=== PATIENT | female | born 1975 | race Caucasian/White ===

== ENCOUNTER → 2017-11-09 07:00 | Outpatient (CLI) | payer OTHER, SELFPAY ==
--- NOTE | 2017-11-09 06:59 | HPBI_ITS ---
MAMMOGRAPHY - BILATERAL SCREENING REASON FOR EXAM: Female, 42 years old. Routine annual screening examination. PERTINENT HISTORY: Grandmother with breast cancer. TECHNIQUE: Digital bilateral breast maria g (3D mammographic acquisition) in the CC and MLO projections. 2-D mediolateral oblique (MLO) and craniocaudad (CC) views of both breasts were obtained. CAD: Full Field Digital Mammography with Computer Added Detection was performed. COMPARISON: Comparison is made with prior axial examination dated December 05, 2014. FINDINGS: Breast Composition: There are scattered areas of fibroglandular density. There are no dominant masses or suspicious calcifications. Stable bilateral benign appearing axillary lymph nodes. No other significant abnormalities are identified. There has been no significant change since the prior study. HPBI/SCREENING MAMM (CAD), BILAT IMPRESSION: Stable bilateral screening mammogram. Yearly follow-up mammogram recommended. (A) ASSESSMENT CATEGORY: BIRADS Category 2: Benign. A letter regarding these results will be sent to the patient by the facility within 30 days. Approximately 10% of breast cancers are not detected by mammography. A normal mammogram should not delay biopsy of a clinically suspicious abnormality. [id number] Electronically Signed: Paul Palmer MD at 8:25 EST Tel [phone], Service support ,
== END ==
PROVIDERS: Family Provider Family Medicine; PCP Family Medicine; Visit Provider Obstetrics & Gynecology
DX: Z12.31 Encounter for screening mammogram for malignant neoplasm of breast (principal)
CPT/HCPCS: 77063; 77067

== ENCOUNTER → 2018-11-23 09:00 | Outpatient (CLI) | payer OTHER, SELFPAY ==
[2018-11-23 08:49] VITALS: BMI 26.9
== END ==
PROVIDERS: PCP Family Medicine; Visit Provider Obstetrics & Gynecology
DX: Z12.4 Encounter for screening for malignant neoplasm of cervix (principal)

== ENCOUNTER → 2019-01-04 06:56 | Outpatient (CLI) | payer OTHER, SELFPAY ==
[2018-11-23 08:49] VITALS: BMI 26.9
--- NOTE | 2019-01-04 07:04 | BI_ITS ---
MAMMOGRAPHY - BILATERAL SCREENING REASON FOR EXAM: Female, 43 years old. Routine annual screening examination. PERTINENT HISTORY: Grandmother with breast cancer. TECHNIQUE: Digital bilateral breast meme (3D mammographic acquisition) in the CC and MLO projections. 2-D mediolateral oblique (MLO) and craniocaudad (CC) views of both breasts were obtained. CAD: Full Field Digital Mammography with Computer Added Detection was performed. COMPARISON: Comparison is made with prior study dated November 09, 2017. FINDINGS: Breast Composition: The breasts are heterogeneously dense, which may obscure small masses. There are no dominant masses or suspicious calcifications. Stable appearance of the bilateral axillary lymph nodes. No other significant abnormalities are identified. There has been no significant change since the prior study. BI/SCREEN MAMM (CAD) W/MEME BILAT IMPRESSION: Stable bilateral screening mammogram. Yearly follow-up mammogram recommended. (A) ASSESSMENT CATEGORY: BIRADS Category 2: Benign. A letter regarding these results will be sent to the patient by the facility within 30 days. Approximately 10% of breast cancers are not detected by mammography. A normal mammogram should not delay biopsy of a clinically suspicious abnormality. [id number] Electronically Signed: Paul Palmer, at 8:36 EDT , Service support ,
== END ==
PROVIDERS: Family Provider Family Medicine; PCP Family Medicine; Referring Provider Obstetrics & Gynecology; Visit Provider Obstetrics & Gynecology
DX: Z12.31 Encounter for screening mammogram for malignant neoplasm of breast (principal)
CPT/HCPCS: 77063; 77067

== ENCOUNTER 2020-06-20 12:06 | Outpatient (RCR) | payer OTHER, SELFPAY ==
[2018-11-23 08:49] VITALS: BMI 26.9
== END 2020-07-04 23:59 ==
LOC: EMPH 12:06
PROVIDERS: Visit Provider Family Medicine Geriatric Medicine
DX: Z11.59 Encounter for screening for other viral diseases (principal)
CPT/HCPCS: 87635; U0003

== ENCOUNTER 2020-08-02 10:33 | Outpatient (RCR) | payer OTHER, SELFPAY ==
[2018-11-23 08:49] VITALS: BMI 26.9
== END 2020-08-04 23:59 ==
LOC: EMPH 10:33
PROVIDERS: Visit Provider Family Medicine Geriatric Medicine
DX: Z03.818 Encounter for observation for suspected exposure to other biological agents ruled out (principal)
CPT/HCPCS: 87426

== ENCOUNTER 2020-08-29 10:06 | Outpatient (RCR) | payer OTHER, SELFPAY ==
[2018-11-23 08:49] VITALS: BMI 26.9
[2020-08-16 13:44] LABS: Probe Check PASS; Specimen Processing Control PASS
== END 2020-09-03 23:59 ==
LOC: EMPH 10:06
PROVIDERS: Visit Provider Family Medicine Geriatric Medicine
DX: Z03.818 Encounter for observation for suspected exposure to other biological agents ruled out (principal)
CPT/HCPCS: 87426; 87635; U0002

== ENCOUNTER 2020-10-03 14:12 | Outpatient (RCR) | payer OTHER, SELFPAY ==
[2018-11-23 08:49] VITALS: BMI 26.9
== END 2020-10-04 23:59 ==
LOC: EMPH 14:12
PROVIDERS: Referring Provider Family Medicine Geriatric Medicine; Visit Provider Family Medicine Geriatric Medicine
DX: Z03.818 Encounter for observation for suspected exposure to other biological agents ruled out (principal)
CPT/HCPCS: 87426

== ENCOUNTER → 2020-10-30 07:26 | Outpatient (CLI) | payer OTHER, SELFPAY ==
[2018-11-23 08:49] VITALS: BMI 26.9
--- NOTE | 2020-10-30 07:29 | BI_ITS ---
MAMMOGRAPHY - BILATERAL SCREENING REASON FOR EXAM: Female, 45 years old. Routine annual screening examination. PERTINENT HISTORY: Grandmother with breast cancer. Aunt with breast cancer. TECHNIQUE: Digital bilateral breast meme (3D mammographic acquisition) in the CC and MLO projections. 2-D mediolateral oblique (MLO) and craniocaudad (CC) views of both breasts were obtained. CAD: Full Field Digital Mammography with Computer Added Detection was performed. COMPARISON: Comparison is made with prior examination dated 01/04/2019 and 11/09/2017. FINDINGS: Breast Composition: The breasts are heterogeneously dense, which may obscure small masses. There are no dominant masses or suspicious calcifications. Stable appearance of the small bilateral axillary lymph nodes. No other significant abnormalities are identified. There has been no significant change since the prior study. BI/SCRN MAMM (CAD)W/MEME BILAT IMPRESSION: Stable bilateral screening mammogram. Yearly follow-up mammogram recommended. (A) ASSESSMENT CATEGORY: BIRADS Category 2: Benign. A letter regarding these results will be sent to the patient by the facility within 30 days. Approximately 10% of breast cancers are not detected by mammography. A normal mammogram should not delay biopsy of a clinically suspicious abnormality. [id number] Electronically Signed: Paul Palmer MD at 8:43 EST , Service support ,
== END ==
DX: Z12.31 Encounter for screening mammogram for malignant neoplasm of breast (principal); Z80.3 Family history of malignant neoplasm of breast
CPT/HCPCS: 77063; 77067

== ENCOUNTER 2020-11-02 14:13 | Outpatient (RCR) | payer OTHER, SELFPAY ==
[2018-11-23 08:49] VITALS: BMI 26.9
== END 2020-11-04 23:59 ==
LOC: EMPH 14:13
PROVIDERS: Referring Provider Family Medicine Geriatric Medicine; Visit Provider Family Medicine Geriatric Medicine
DX: Z03.818 Encounter for observation for suspected exposure to other biological agents ruled out (principal)
CPT/HCPCS: 87426

== ENCOUNTER 2020-11-30 09:35 | Outpatient (RCR) | payer OTHER, SELFPAY ==
[2020-10-30 08:31] VITALS: BMI 24.4
== END 2020-12-02 23:59 ==
LOC: EMPH 09:35
PROVIDERS: Referring Provider Family Medicine Geriatric Medicine; Visit Provider Family Medicine Geriatric Medicine
DX: Z03.818 Encounter for observation for suspected exposure to other biological agents ruled out (principal)
CPT/HCPCS: 87426

== ENCOUNTER 2020-12-26 12:02 | Outpatient (RCR) | payer OTHER, SELFPAY ==
[2020-10-30 08:31] VITALS: BMI 24.4
== END 2021-01-02 23:59 ==
LOC: EMPH 12:02
PROVIDERS: Referring Provider Family Medicine Geriatric Medicine; Visit Provider Family Medicine Geriatric Medicine
DX: Z03.818 Encounter for observation for suspected exposure to other biological agents ruled out (principal)
CPT/HCPCS: 87426

== ENCOUNTER 2021-02-01 09:58 | Outpatient (RCR) | payer OTHER, SELFPAY ==
[2020-10-30 08:31] VITALS: BMI 24.4
== END 2021-02-01 23:59 ==
LOC: EMPH 09:58
PROVIDERS: Referring Provider Family Medicine Geriatric Medicine; Visit Provider Family Medicine Geriatric Medicine
DX: Z03.818 Encounter for observation for suspected exposure to other biological agents ruled out (principal)
CPT/HCPCS: 87426

== ENCOUNTER 2021-03-01 09:09 | Outpatient (RCR) | payer OTHER, SELFPAY ==
[2020-10-30 08:31] VITALS: BMI 24.4
== END 2021-03-04 23:59 ==
LOC: EMPH 09:09
PROVIDERS: Referring Provider Family Medicine Geriatric Medicine; Visit Provider Family Medicine Geriatric Medicine
DX: Z03.818 Encounter for observation for suspected exposure to other biological agents ruled out (principal)
CPT/HCPCS: 87426

== ENCOUNTER 2021-04-02 11:16 | Outpatient (RCR) | payer OTHER, SELFPAY ==
[2020-10-30 08:31] VITALS: BMI 24.4
== END 2021-04-03 23:59 ==
LOC: EMPH 11:16
PROVIDERS: Referring Provider Family Medicine Geriatric Medicine; Visit Provider Family Medicine Geriatric Medicine
DX: Z03.818 Encounter for observation for suspected exposure to other biological agents ruled out (principal)
CPT/HCPCS: 87426

== ENCOUNTER 2021-05-03 12:13 | Outpatient (RCR) | payer OTHER, SELFPAY ==
[2020-10-30 08:31] VITALS: BMI 24.4
== END 2021-05-04 23:59 ==
LOC: EMPH 12:13
PROVIDERS: Referring Provider Family Medicine Geriatric Medicine; Visit Provider Family Medicine Geriatric Medicine
DX: Z03.818 Encounter for observation for suspected exposure to other biological agents ruled out (principal)
CPT/HCPCS: 87426

== ENCOUNTER 2021-06-04 12:20 | Outpatient (RCR) | payer OTHER, SELFPAY ==
[2020-10-30 08:31] VITALS: BMI 24.4
== END 2021-06-04 23:59 ==
LOC: EMPH 12:20
PROVIDERS: Referring Provider Family Medicine Geriatric Medicine; Visit Provider Family Medicine Geriatric Medicine
DX: Z03.818 Encounter for observation for suspected exposure to other biological agents ruled out (principal)
CPT/HCPCS: 87426

== ENCOUNTER 2021-07-04 13:13 | Outpatient (RCR) | payer OTHER, SELFPAY ==
[2021-06-05 00:28] VITALS: BMI 24.4
== END 2021-07-04 23:59 ==
LOC: EMPH 13:13
PROVIDERS: Referring Provider Family Medicine Geriatric Medicine; Visit Provider Family Medicine Geriatric Medicine
DX: Z03.818 Encounter for observation for suspected exposure to other biological agents ruled out (principal)
CPT/HCPCS: 87426; 87635; U0003

== ENCOUNTER 2021-07-18 16:25 | Outpatient (RCR) | payer OTHER, SELFPAY ==
[2021-07-05 00:22] VITALS: BMI 24.4
== END 2021-08-04 23:59 ==
LOC: EMPH 16:25
PROVIDERS: Referring Provider Family Medicine Geriatric Medicine; Visit Provider Family Medicine Geriatric Medicine
DX: Z03.818 Encounter for observation for suspected exposure to other biological agents ruled out (principal)
CPT/HCPCS: 87426

== ENCOUNTER 2021-08-12 11:00 | Outpatient (RCR) | payer OTHER, SELFPAY ==
[2021-08-05 00:18] VITALS: BMI 24.4
== END 2021-09-03 23:59 ==
LOC: EMPH 11:00
PROVIDERS: Referring Provider Family Medicine Geriatric Medicine; Visit Provider Family Medicine Geriatric Medicine
DX: Z03.818 Encounter for observation for suspected exposure to other biological agents ruled out (principal)
CPT/HCPCS: 87426

== ENCOUNTER 2021-09-10 13:52 | Outpatient (RCR) | payer OTHER, SELFPAY ==
[2021-09-04 00:23] VITALS: BMI 24.4
== END 2021-10-04 23:59 ==
LOC: EMPH 13:52
PROVIDERS: Referring Provider Family Medicine Geriatric Medicine; Visit Provider Family Medicine Geriatric Medicine
DX: Z03.818 Encounter for observation for suspected exposure to other biological agents ruled out (principal)
CPT/HCPCS: 87635; U0003

== ENCOUNTER 2021-10-10 14:24 | Outpatient (RCR) | payer OTHER, SELFPAY ==
[2021-10-05 00:23] VITALS: BMI 24.4
== END 2021-11-04 23:59 ==
LOC: EMPH 14:24
PROVIDERS: Referring Provider Family Medicine Geriatric Medicine; Visit Provider Family Medicine Geriatric Medicine
DX: U07.1 COVID-19 (principal); Z03.818 Encounter for observation for suspected exposure to other biological agents ruled out
CPT/HCPCS: 87426

== ENCOUNTER → 2023-04-30 | Outpatient (CLI) | payer OTHER, SELFPAY ==
--- NOTE | 2023-04-30 08:37 | BI_ITS ---
MAMMOGRAPHY - BILATERAL SCREENING REASON FOR EXAM: Female, 47 years old. Routine annual screening examination. PERTINENT HISTORY: Grandmother with breast cancer. Aunt with breast cancer. TECHNIQUE: Digital bilateral breast meme (3D mammographic acquisition) in the CC and MLO projections. 2-D mediolateral oblique (MLO) and craniocaudad (CC) views of both breasts were obtained. CAD: Full Field Digital Mammography with Computer Added Detection was performed. COMPARISON: Comparison is made with prior study dated April 29, 2021 and January 04, 2019. FINDINGS: Breast Composition: The breasts are heterogeneously dense, which may obscure small masses. There are no dominant masses or suspicious calcifications. Stable small benign-appearing bilateral axillary lymph nodes. No other significant abnormalities are identified. There has been no significant change since the prior study. BI/SCRN MAMM (CAD)W/MEME BILAT IMPRESSION: Stable bilateral screening mammogram. Yearly follow-up mammogram recommended. (A) ASSESSMENT CATEGORY: BIRADS Category 2: Benign. A letter regarding these results will be sent to the patient by the facility within 30 days. Approximately 10% of breast cancers are not detected by mammography. A normal mammogram should not delay biopsy of a clinically suspicious abnormality. [id number] Electronically Signed: Paul Palmer MD at 9:50 EDT ,
== END | disposition home or self-care (01) ==
LOC: OPBI 08:34
DX: Z12.31 Encounter for screening mammogram for malignant neoplasm of breast (principal); Z80.3 Family history of malignant neoplasm of breast
CPT/HCPCS: 77063; 77067

== ENCOUNTER → 2023-07-15 | Outpatient (CLI) | payer OTHER, SELFPAY ==
[2023-07-21 17:07] LABS: HPV APTIMA, High Risk Negative (Negative)
== END | disposition home or self-care (01) ==
LOC: LABSPEC 15:43
PROVIDERS: Referring Provider Obstetrics & Gynecology; Visit Provider Obstetrics & Gynecology
DX: Z12.4 Encounter for screening for malignant neoplasm of cervix (principal)
CPT/HCPCS: 87624; 88175; G0145

== ENCOUNTER → 2023-09-07 | Outpatient (CLI) | payer OTHER, SELFPAY ==
--- NOTE | 2023-09-07 16:26 | US_ITS ---
INDICATION: endocervical polyp EXAMINATION: Ultrasound US Transvaginal Non-OB TECHNIQUE: Transvaginal pelvic ultrasound was performed. Grayscale, spectral waveform, and color flow Doppler evaluation of the adnexa. COMPARISON: None LMP: 08/20/2023. FINDINGS: UTERUS: 9.9 cm length. Normal configuration. ENDOMETRIUM: Thickened. 2.1 cm. Multiple nabothian cysts in the cervix. No definite polyp or mass identified in the endometrial canal. OVARIES: Right ovary: 3.1 x 1.7 x 1.9 cm. Left ovary: 4.3 x 2.2 x 2.9 cm. Cystic structure with irregular margins, measures 2.1 x 1.5 x 2.0 cm. The ovaries otherwise appear unremarkable. Vascular flow demonstrated. No findings to suggest ovarian torsion. FREE FLUID: Small amount of free fluid in the cul-de-sac and adjacent to the right ovary.. US/Transvaginal Non- IMPRESSION: Thickened endometrium. No definite endometrial polyp identified. Nabothian cysts in the cervix. Left ovarian small 2 cm complex cyst or follicle. Electronically Signed: Amee Butler MD at 0:05 EST ,
== END | disposition home or self-care (01) ==
PROVIDERS: Referring Provider Obstetrics & Gynecology; Visit Provider Obstetrics & Gynecology
DX: N84.1 Polyp of cervix uteri (principal)
CPT/HCPCS: 76830

== ENCOUNTER → 2024-06-21 | Outpatient (CLI) | payer OTHER, SELFPAY ==
--- NOTE | 2024-06-21 08:40 | BI_ITS ---
MAMMOGRAPHY - BILATERAL SCREENING REASON FOR EXAM: Female, 49 years old. Routine annual screening examination. PERTINENT HISTORY: Grandmother with breast cancer. Aunt with breast cancer. TECHNIQUE: Digital bilateral breast meme (3D mammographic acquisition) in the CC and MLO projections. 2-D mediolateral oblique (MLO) and craniocaudad (CC) views of both breasts were obtained. CAD: Full Field Digital Mammography with Computer Added Detection was performed. COMPARISON: Comparison is made with prior study April 30, 2023 and October 30, 2020. FINDINGS: Breast Composition: The breasts are heterogeneously dense, which may obscure small masses. There are no dominant masses or suspicious calcifications. Stable small benign-appearing bilateral axillary lymph nodes. No other significant abnormalities are identified. There has been no significant change since the prior study. BI/SCRN MAMM (CAD)W/MEME BILAT IMPRESSION: Stable bilateral screening mammogram. Yearly follow-up mammogram recommended. (A) ASSESSMENT CATEGORY: BIRADS Category 2: Benign. A letter regarding these results will be sent to the patient by the facility within 30 days. Approximately 10% of breast cancers are not detected by mammography. A normal mammogram should not delay biopsy of a clinically suspicious abnormality. [id number] Electronically Signed: Paul Palmer MD at 9:46 EDT ,
== END | disposition home or self-care (01) ==
LOC: OPBI 08:37
DX: Z12.31 Encounter for screening mammogram for malignant neoplasm of breast (principal); Z80.3 Family history of malignant neoplasm of breast
CPT/HCPCS: 77063; 77067

== ENCOUNTER → 2025-08-14 | Outpatient (CLI) | payer OTHER, SELFPAY ==
[2025-08-14 13:10] LABS: Vitamin B12 1525 pg/mL (180-914); Vitamin D,25 Hydroxy 38.5 ng/mL (30-100)
[2025-08-22 12:09] LABS: HPV APTIMA, High Risk Negative (Negative)
== END | disposition home or self-care (01) ==
LOC: BWCLAB 09:49
PROVIDERS: Visit Provider Obstetrics & Gynecology
DX: Z12.4 Encounter for screening for malignant neoplasm of cervix (principal); R53.83 Other fatigue
CPT/HCPCS: 36415; 82306; 82607; 87624; 88175; G0145

== ENCOUNTER → 2025-09-12 | Outpatient (CLI) | payer OTHER, SELFPAY ==
--- NOTE | 2025-09-12 08:45 | BI_ITS ---
EXAM: SCRN MAMM (CAD)W/MEME BILAT DATE: 09/12/2025 CLINICAL HISTORY: F, Age 50 y/o , SCREENING FOR BREAST CANCER Grandmother with breast cancer. Aunt with breast cancer. TECHNIQUE: Procedure Code: [id number] Modality: MG Procedure: SCRN MAMM (CAD)W/MEME BILAT COMPARISON: Prior exam(s) dated June 21, 2024.. FINDINGS: TISSUE DENSITY: The breasts are heterogeneously dense, which may obscure small masses. Bilateral Breast Mammographic Findings: No significant masses, calcifications or other abnormalities are identified. Stable small benign-appearing bilateral axillary lymph nodes. No suspicious masses, areas of developing architectural distortion, or suspicious calcifications. There has been no significant interval change. BI/SCRN MAMM (CAD)W/MEME BILAT IMPRESSION: Stable bilateral screening mammogram. OVERALL FINAL ASSESSMENT BI-RADS 2: BENIGN RECOMMENDATION: Routine annual follow-up in 1 Year Additional Recommendation none A letter with findings and recommendations will be mailed to the patient. Reading Location: [place] [id number]
--- OUTSIDE RECORDS SUMMARY | 2025-09-12 09:29 | XMS RPT_ITS | CCD ---
Author Organization [facility] Care Team Providers Care Administrative Staff Supervisor Name Role Phone Unavailable Primary Care Provider Radha Andrews MD, Alexsander Marrero Unavailable Lizette Hernandez Unavailable [phone] Kary Maciel Attending Provider [phone] Dr. Kary Maciel Attending Provider [phone] RJ CRISTINA Primary Care Provider Assessment, Health Risk Attending Provider Unava ilable Assessment, Health Risk Referring Provider Unava ilable Cipriano KABA Pancho Chi Attending Provider Unavailable Cipriano KABA, Pancho Chi Referring Provider Unavailable Cipriano OLS, Pancho Chi Attending Unavailable Cipriano OLS, Pancho Chi Referring Unavailable TRUMP, DA Primary Care Unavailable Cipriano, Pancho Chi Attending Unavailable TRUMP, DA Primary Care Unavailable Cipriano, Pancho Chi Referring Unavailable TRUMP, DA Primary Care Unavailable Cipriano, Pancho Chi Attending Unavailable Cipriano, Pancho Chi Referring Unavailable TRUMP, DA Primary Care Unavailable Assessment, Health Risk Attending Unavaila ble Assessment, Health Risk Referring Unavaila ble TRUMP, DA Primary Care Unavailable Cipriano DAYNA, Pancho Chi Attending Unavailable Cipriano OLS, Pancho Chi Referring Unavailable TRUMP, DA Primary Care Unavailable Kary Maciel Attending Unavailwillow e TRUMP, DA Primary Care Unavailable TRUMP, DA Referring Unavailable Kary Maciel Attending Radha lilly Medications Current Medications Medication Drug Class(es) Dates Sig (Normalized) Sig (Original) calcium carbonate 1250 mg oral tablet (4 sources) Start: 07-15-2023 take 1 tablet by mouth once daily Calcium Carbonate 500 mg calcium (1,250 mg) tablet Active 500 mg PO DAILY July 15, 2023 12:00am meclizine hydrochloride 25 mg oral tablet (2 sources) Antiemetic Start: 06-25-2023 Meclizine 25 mg oral tablet Multivitamin preparation (12 sources) Start: 10-30-2020 take 1 tablet by mouth once daily Multivitamin Active 1 TABLET PO DAILY October 30, 2020 9:34am Start: 10-30-2020 End: 07-15-2023 take 1 tablet by mouth once daily Multivitamin Discontinued 1 TABLET PO DAILY October 30, 2020 12:00am July 15, 2023 1:13pm Start: 10-30-2020 End: 07-15-2023 take 1 tablet by mouth once daily Multivitamin Discontinued 1 TABLET PO DAILY October 30, 2020 1:00am July 15, 2023 2:13pm Start: 10-30-2020 take 1 tablet by angella th once daily Multivitamin Active 1 TABLET PO DAILY October 30, 2020 12:00am Start: 10-30-2020 take 1 tablet by angella th once daily Multivitamin Active 1 TABLET PO DAILY October 30, 2020 1:00am ondansetron 4 mg disintegrating oral tablet (2 sources) Serotonin-3 Receptor Antagonist Start: 06-25-2023 Ondansetron 4 mg ora l tablet, disintegrating Completed/Discontinued Medications Medication Drug Class(es) Dates Sig (Normalized) Sig (Original) cholecalciferol 0.05 mg oral capsule (13 sources) Vitamin D Start: 10-30-2020 End: 07-15-2023 take 1 capsule by mouth once daily Cholecalciferol (Vitamin D3) 50 mcg (2,000 unit) capsule Discontinued 50 ug PO DAILY October 30, 2020 1:00am July 15, 2023 2:13pm loratadine 10 mg oral tablet (13 sources) Start: 10-30-2020 End: 07-15-2023 take 1 tablet by mouth once daily Loratadine (Claritin) 10 mg tablet Discontinued 10 mg PO DAILY October 30, 2020 1:00am July 15, 2023 2:13pm multivitamin (DAILY MULTIPLE) tablet (1 source) Start: 11-02-2014 take 1 tablet by mouth once daily multivitamin (DAILY MULTIPLE) tablet Take 1 tablet by mouth once daily. 0 11/02/2014 Active Comment on above: Take 1 tablet by angella th once daily. Multivitamin tablet (1 source) Start: 10-30-2020 End: 07-15-2023 Multivitamin tablet Discontinued 1 {tbl} PO DAILY October 30, 2020 1:00am July 15, 2023 2:13pm NEGATED: Highlighted row has not occurred! (2 sources) Start: 07-06-2023 End: 07-06-2023 Problems Active Problems Problem Classification Problem Date Documented Da te Episodic/Chronic Conditions associated with dizziness or vertigo (4 sources) Benign paroxysmal vertigo, unspecified ear; Translations: [Benign paroxysmal vertigo, unspecified ear] Onset: 06-25-2023 Episodic Immunizations and screening for infectious disease (2 sources) Encounter for observation for suspected exposure to other biological agents ruled out; Translations: [Encounter for observation for suspected exposure to other biological agents ruled out] Onset: 06-05-2025 Episodic Malaise and fatigue (1 source) Other fatigue; Translations: [Other fatigue] Onset: 08-14-2025 Episodic Other female genital disorders (4 sources) Endocervical polyp; Translations: [Polyp of cervix uteri] 07-15-2023 Episodic Other female genital disorders (3 sources) Polyp of cervix uteri; Translations: [Mucous polyp of cervix] 07-15-2023 Episodic Other screening for suspected conditions (not mental disorders or infectious disease) (1 source) Encounter for other screening for malignant neoplasm of breast; Translations: [Encounter for other screening for malignant neoplasm of breast] Onset: 08-14-2025 Episodic Past or Other Problems Problem Classification Problem Date Documented Da te Episodic/Chronic Unclassified (9 sources) history of child 05-05-2022 Results Test Name Value Interpretation Reference Range Facility [facility] Office Visit Reporton 08-14-2025 [facility] Office Visit Report [facility] [address], [address] [place] [address] OFFICE VISIT Date of Service: 08/14/25 MR#: [id number] Acct: [id number] Name: JAMAL ZARATE Rep #: [id number] : 1975 Provider: Dr. 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 Is patient in pain?: No Allergies No Known Allergies Allergy (Verified 08/14/25 08:50) Medications ???Medication ???Instructions ???Recorded ???Confirmed ???Type multivitamin 1 tab PO QAM 08/14/25 08/14/25 His tory Is last menstrual period known: Yes Last Menstrual Period: 07/31/25 Post menopausal: No Patient : No : No [facility] Medical History history of child Social History Smoking Status: Never smoker alcohol intake: never substance use type: does not use caffeine: Yes what type of physical activity do you participate in: none seatbelt use: always do you feel safe at home: Yes 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 Date Name GA/Weeks Outcome Route Bth Weight Gen Labor Lgth Anesthesia Del Locatn Provider FOB Unknown 2003 Bogdan Unknown 2004 [facility] Encounter for routine gynecological examination Details: The patient is a 50-year-old female with a history of perimenopause presenting for an annual checkup. Menopausal Symptoms - Reports feeling tired all the time, even after 8 hours of sleep, and experiencing brain fog. - Denies hot flashes, night sweats, or sleep disturbances. - Expresses curiosity about hormone replacement therapy (HRT) and wonders if she should have her hormone levels checked. - In her 30s, she experienced symptoms of perimenopause, including irregular periods and recurrent yeast infections. She was treated with progesterone cream and boric acid, which resolved her symptoms and normalized her cycles. Menstrual History - Reports regular menstrual cycles. Bone Health - Asks about vitamin D supplementation for osteoporosis prevention. Family History - Grandmother had breast cancer. Current Medications and Supplements - None mentioned. Past Medical History - Perimenopause (diagnosed in her 30s) Past Surgical History - None mentioned. Social History - . - Has children. - Works at a hospital. - Reports a healthy lifestyle, including weight loss over the past 5-6 years by watching her diet and avoiding junk food. Last PAP: 07/15/23- [facility]us History of abnormal PAP: yes Last mammogram: 06/21/2024 History of abnormal mammogram: no Colon cancer screening: Other preventative health care screenings: followed by pcp Female Reproductive History Last Menstrual Period: 07/31/25 Cycle Length: 21-35 Bleeding Duration: 5 Questions: metrorrhagia: No, sexually active: Yes, dyspareunia: No and PCB: No Menopausal Symptoms: No hot flashes, No night sweats, No weight change, No mood changes, No difficulty concentrating, No sleep problems and No change in libido ROS Const Constitutional: Reports as per HPI; Denies fatigue, increased appetite, poor appetite, night sweats, weight gain or weight loss Cardio Card: Denies chest pain Resp Resp: Denies cough or dyspnea GI GI: Reports as per HPI; Denies abdominal pain, bloating, constipation, nausea or vomiting : Reports as per HPI and other; Denies difficulty voiding, dysuria, hematuria, hot flashes, nipple discharge, pelvic pain, prolapse symptoms, urinary frequency, urinary incontinence, urinary urgency, vaginal discharge, vaginal dryness, vaginal odor or vaginal pruritus Skin Skin/Breast: Denies changing lesions, breast mass, breast pain, breast skin changes or nipple discharge Psych Psych: Denies anxiety, change in libido, depression or difficulty concentrating Exam Const General: cooperative, healthy appearing, comfortable, no acute distress, well developed and well groomed [facility] Head: normal to inspection and normocephalic Ears: hearing grossly normal bilaterally and external ears normal Nose: external nose normal Face and sinus: normal facial exam Neck Neck: normal visual inspection, full ROM and no lymphadenopathy Thyroid: thyroid normal Chest Chest palpation inspection: normal ins (more content not included)... Normal [facility] Vitamin B12on 08-14-2025 Cobalamin (Vitamin B12) [Mass/Vol] 1525 pg/mL High 180-914 [facility] Comment on above: Performed By: #### L 503.0106, L506.1001 #### [facility] [address] [place], [address] Vitamin D,25 Hydroxyon 08-14 Vitamin D 25-OH 38.5 ng/mL Normal 30-100 [facility] Comment on above: Result Comment: Faby min D Status Deficiency: <20 ng/mL (50nmol/L) Insufficiency: 20-30 ng/mL (50-75 nmol/L) Sufficiency: 30-100 ng/mL (75-250 nmol/L) Toxicity: >100 ng/mL (>250 nmol/L) Performed By: #### L 503.0106, L506.1001 #### [facility] [address] [facility] [place], [address] COVID 19 AG RAPID (DOUGLAS Chatman)on 05-25-2025 SARS-CoV-2 (COVID-19) RNA RAMÓN+probe Ql (Unsp spec) *Negative results from patients with symptom onset beyond five days should be treated as presumptive and confirmed by a molecular assay if clinically necessary. Negative results should not be used as the sole basis for treatment or for patient management. SARS-CoV-2 Ag Resp Ql IA.rapid *Positive results do not differentiate between SARS-CoV and SARS-CoV-2. If differentiation of the specific SARS virus is desired an additional sample and an additional order is required. SARS-CoV-2 Ag Resp Ql IA.rapid * This test has not been FDA cleared or approved; the test has been authorized by FDA under an Emergency Use Authorization (EAU) for use by laboratories certified under CLIA that meet the requirements to perform moderate, high, or waived complexity tests. SARS-CoV-2 Ag Resp Ql IA.rapid Normal Reference Range: Negative SARS-CoV-2 (COVID 19) Negative RAPID METHOD [employer] COVID19 Ag Card Normal [facility] Comment on above: Performed By: #### M 100.505 #### [facility] [address] [facility] [place], [address] COVID-19 virus antigen assay Ordered By: Pancho Cota on 05-25-2025 SARS-CoV-2 (COVID-19) Ag IA.rapid Ql (Resp) [facility] Absolute lymphocyte countOrd ered By: HEALTH ASSESSMENT on 04-21-2025 Lymphocytes Auto (Unsp spec) [#/Vol] 1.82 10*3/uL 0.83-4.51 [facility] Absolute neutrophil countOrd ered By: HEALTH ASSESSMENT on 04-21-2025 Neutrophils (Bld) [#/Vol] 3.6 10*3/uL 2.0-7.7 [facility] Absolute nucleated red blood cell countOrdered By: HEALTH ASSESSMENT on 04-21-2025 Nucleated RBC (Bld) [#/Vol] 0.00 10*3/uL 0-5 [facility] Anion gap in Serum or Plasma Ordered By: HEALTH ASSESSMENT on 04-21-2025 Anion gap [Moles/Vol] 9 mmol/L 5-15 [facility] BUN/creatinine ratioOrdered By: HEALTH ASSESSMENT on 04-21-2025 Urea nitrogen/Creatinine [Mass ratio] 25.4 mg/mg High 10-20 [facility] Bilirubin Test strip Ql (U)O rdered By: HEALTH ASSESSMENT on 04-21-2025 Bilirubin Ql (U) Negative Negative [facility] Bilirubin directOrdered By: HEALTH ASSESSMENT on 04-21-2025 Bilirubin.direct [Mass/Vol] 0.23 mg/dL 0.00-0.30 [facility] Bilirubin, totalOrdered By: HEALTH ASSESSMENT on 04-21-2025 Bilirubin [Mass/Vol] 0.56 mg/dL 0.00-1.30 [facility] CBC, Employeeon 04-21-2025 Absolute Lymph 1.82 X10 3/uL Normal 0.83-4.51 [facility] Comment on above: Performed By: #### L 100.0200, L500.2900, L400.0100 #### [facility] [address] [place], [address] Absolute Neut 3.6 X10 3/uL Normal 2.0-7.7 [facility] Comment on above: Performed By: #### L 100.0200, L500.2900, L400.0100 #### [facility] [address] [place], [address] Basophils/100 WBC (Bld) 0.9 % Normal 0-1 [facility] Comment on above: Performed By: #### L 100.0200, L500.2900, L400.0100 #### [facility] [address] [place], [address] Eosinophils/100 WBC (Bld) 4.2 % Normal 0-5 [facility] Comment on above: Performed By: #### L 100.0200, L500.2900, L400.0100 #### [facility] [address] [place], [address] Erythrocyte distribution width (RBC) [Ratio] 12.3 % Normal 11.6-14.6 [facility] Comment on above: Performed By: #### L 100.0200, L500.2900, L400.0100 #### [facility] [address] [place], [address] Hematocrit (Bld) [Volume fraction] 38.7 % Normal 37-47 [facility] Comment on above: Performed By: #### L 100.0200, L500.2900, L400.0100 #### [facility] [address] [place], [address] Hemoglobin (Bld) [Mass/Vol] 12.9 g/dL Normal 12.0-15.0 [facility] Comment on above: Performed By: #### L 100.0200, L500.2900, L400.0100 #### [facility] [address] [place], [address] Lymphocytes/100 WBC (Bld) 28.1 % Normal 19-41 [facility] Comment on above: Performed By: #### L 100.0200, L500.2900, L400.0100 #### [facility] [address] [place], [address] MCH (RBC) [Entitic mass] 29.9 pg Normal 27.0-32.0 [facility] Comment on above: Performed By: #### L 100.0200, L500.2900, L400.0100 #### [facility] [address] [place], [address] MCHC (RBC) [Mass/Vol] 33.3 g/dL Normal 32-36 [facility] Comment on above: Performed By: #### L 100.0200, L500.2900, L400.0100 #### [facility] [address] [place], [address] MCV (RBC) [Entitic vol] 89.6 fL Normal 81-99 [facility] Comment on above: Performed By: #### L 100.0200, L500.2900, L400.0100 #### [facility] [address] [place], [address] Monocytes/100 WBC (Bld) 11.1 % High 0-10 [facility] Comment on above: Performed By: #### L 100.0200, L500.2900, L400.0100 #### [facility] [address] [place], [address] Neutrophils/100 WBC (Bld) 55.2 % Normal 47-70 [facility] Comment on above: Performed By: #### L 100.0200, L500.2900, L400.0100 #### [facility] [address] [place], [address] NRBC # 0.00 10 3/uL Normal 0-5 [facility] Comment on above: Performed By: #### L 100.0200, L500.2900, L400.0100 #### [facility] [address] [place], [address] Nucleated RBC (Bld) [#/Vol] 0 10*3/uL Normal 0-5 [facility] Comment on above: Performed By: #### L 100.0200, L500.2900, L400.0100 #### [facility] [address] [place], [address] Platelet mean volume (Bld) [Entitic vol] 9.2 fL Normal 6.2-12.0 [facility] Comment on above: Performed By: #### L 100.0200, L500.2900, L400.0100 #### [facility] [address] [place], [address] Platelets (Bld) [#/Vol] 264 10*3/uL Normal 150-450 [facility] Comment on above: Performed By: #### L 100.0200, L500.2900, L400.0100 #### [facility] [address] [place], [address] RBC (Bld) [#/Vol] 4.32 10*6/uL Normal 4.2-5.4 [facility] Comment on above: Performed By: #### L 100.0200, L500.2900, L400.0100 #### [facility] [address] [place], [address] RDW SD 40.7 fl Normal 35.1-43.9 [facility] Comment on above: Performed By: #### L 100.0200, L500.2900, L400.0100 #### [facility] [address] [place], [address] WBC (Bld) [#/Vol] 6.5 10*3/uL Normal 4.4-11.0 [facility] Comment on above: Performed By: #### L 100.0200, L500.2900, L400.0100 #### [facility] [address] [place], [address] Calculated very low density lipoprotein (VLDL) cholesterol measurementOrdered By: HEALTH ASSESSMENT on 04-21-2025 Calculated very low density lipoprotein (VLDL) cholesterol measurement 13 mg/dL 5-40 [facility] Carbon dioxide, total [Moles /volume] in Central venous bloodOrdered By: HEALTH ASSESSMENT on 04-21-2025 CO2 [Moles/Vol] 24.2 mmol/L 21.0-32.0 [facility] Chloride assayOrdered By: HE ALTH ASSESSMENT on 04-21-2025 Chloride [Moles/Vol] 106 mmol/L 98-108 [facility] Employee Profileon Cholesterol in LDL [Mass/Vol] 83 mg/dL Normal 0-130 [facility] Comment on above: Performed By: #### L 100.0200, L500.2900, L400.0100 #### [facility] [address] [place], [address] Erythrocyte distribution wid th ratioOrdered By: HEALTH ASSESSMENT on 04-21-2025 Erythrocyte distribution width (RBC) [Ratio] 12.3 % 11.6-14.6 [facility] Erythrocyte distribution wid th standard deviationOrdered By: HEALTH ASSESSMENT on 04-21-2025 Erythrocyte distribution width (RBC) [Ratio] 40.7 fl 35.1-43.9 [facility] Glomerular filtration rate ( GFR) estimation/1.73 sq m using serum, plasma, or whole bOrdered By: HEALTH ASSESSMENT on 04-21-2025 GFR/1.73 sq M.predicted among non-blacks MDRD (S/P/Bld) [Vol rate/Area] 104 mL/min/{1.73_m2} >60 [facility] Comment on above: mL/min/1.73m2 CKD-EP I Creatinine Equation (2020) Hematocrit Auto (Bld) [Volum e fraction]Ordered By: HEALTH ASSESSMENT on 04-21-2025 Hematocrit (Bld) [Volume fraction] 38.7 % 37-47 [facility] Hemoglobin measurementOrdere d By: HEALTH ASSESSMENT on 04-21-2025 Hemoglobin (Bld) [Mass/Vol] 12.9 g/dL 12.0-15.0 [facility] Ketones Test strip Ql (U)Ord ered By: HEALTH ASSESSMENT on 04-21-2025 Ketones Ql (U) Negative Negative [facility] - Chemistry and C hemistry - challengeOrdered By: HEALTH ASSESSMENT on 04-21-2025 AST [Catalytic activity/Vol] 18 U/L <32 [facility] Lactate dehydrogenase (LDH) measurementOrdered By: HEALTH ASSESSMENT on 04-21-2025 LDH [Catalytic activity/Vol] 200 U/L 84-246 [facility] MCV (mean corpuscular volume ) determinationOrdered By: HEALTH ASSESSMENT on 04-21-2025 MCV (RBC) [Entitic vol] 89.6 fL 81-99 [facility] Mean corpuscular hemoglobin (MCH) determinationOrdered By: HEALTH ASSESSMENT on 04-21-2025 MCH (RBC) [Entitic mass] 29.9 pg 27.0-32.0 [facility] Mean corpuscular hemoglobin concentration (MCHC) determinationOrdered By: HEALTH ASSESSMENT on 04-21-2025 MCHC (RBC) [Mass/Vol] 33.3 g/dL 32-36 [facility] Mean platelet volume determi nationOrdered By: HEALTH ASSESSMENT on 04-21-2025 Platelet mean volume (Bld) [Entitic vol] 9.2 fL 6.2-12.0 [facility] Neutrophil percentageOrdered By: HEALTH ASSESSMENT on 04-21-2025 Neutrophils/100 WBC (Bld) 55.2 % 47-70 [facility] Nitrite Test strip Ql (U)Ord ered By: HEALTH ASSESSMENT on 04-21-2025 Nitrite Ql (U) Negative Negative [facility] Nucleated red blood cell per centageOrdered By: HEALTH ASSESSMENT on 04-21-2025 Nucleated RBC/100 WBC (Bld) [Ratio] 0 % 0-5 [facility] Platelet countOrdered By: HE ALTH ASSESSMENT on 04-21-2025 Platelets (Bld) [#/Vol] 264 10*3/uL 150-450 [facility] Potassium measurement (mass/ volume)Ordered By: HEALTH ASSESSMENT on 04-21-2025 Potassium (Unsp spec) [Mass/Vol] 4.2 mmol/L 3.3-5.1 [facility] Protein Test strip Ql (U)Ord ered By: HEALTH ASSESSMENT on 04-21-2025 Protein Ql (U) Negative Negative [facility] RBC Auto (Bld) [#/Vol]Ordere d By: HEALTH ASSESSMENT on 04-21-2025 RBC (Bld) [#/Vol] 4.32 10*6/uL 4.2-5.4 [facility] Screening total cholesterol/ high density lipoprotein (HDL) cholesterol ratioOrdered By: HEALTH ASSESSMENT on 04-21-2025 Cholesterol.total/Choles terol in HDL [Mass ratio] 2.71 {ratio} [facility] Serum creatinine measurement (mass/volume)Ordered By: HEALTH ASSESSMENT on 04-21-2025 Creatinine [Mass/Vol] 0.72 mg/dL 0.70-1.20 [facility] Serum globulin measurementOr dered By: HEALTH ASSESSMENT on 04-21-2025 Globulin (S) [Mass/Vol] 2.6 g/dL 2.2-4.2 [facility] Serum glucose measurement (m ass/volume)Ordered By: HEALTH ASSESSMENT on 04-21-2025 Glucose [Mass/Vol] 87 mg/dL 70-99 [facility] Serum or plasma alanine thornton otransferase (ALT) measurementOrdered By: HEALTH ASSESSMENT on 04-21-2025 ALT [Catalytic activity/Vol] 12 U/L <35 [facility] Serum or plasma albumin reyna urement (mass/volume)Ordered By: HEALTH ASSESSMENT on 04-21-2025 Albumin [Mass/Vol] 4.2 g/dL 3.5-5.0 [facility] Serum or plasma albumin/glob ulin mass ratioOrdered By: HEALTH ASSESSMENT on 04-21-2025 Albumin/Globulin [Mass ratio] 1.6 {ratio} 0.9-2.4 [facility] Serum or plasma alkaline glory sphatase measurementOrdered By: HEALTH ASSESSMENT on 04-21-2025 ALP [Catalytic activity/Vol] 52 U/L 35-104 [facility] Serum or plasma calcium reyna urement (mass/volume)Ordered By: HEALTH ASSESSMENT on 04-21-2025 Calcium [Mass/Vol] 9.0 mg/dL 7.6-11.0 [facility] Serum or plasma cholesterol in HDL measurement (mass/volume)Ordered By: HEALTH ASSESSMENT on 04-21-2025 Cholesterol in HDL [Mass/Vol] 56 mg/dL >40 [facility] Comment on above: National Cholesterol Education Program (NCEP) guidelines:<40 mg/dL: Low HDL-cholesterol (major risk factor for CHD)>= 60 mg/dL: High HDL-cholesterol (negative risk factor for CHD)HDL-cholesterol is affected by a number of factors, e.g. smoking, exercise, hormones, sex and age. Serum or plasma cholesterol in LDL measurement (mass/volume)Ordered By: HEALTH ASSESSMENT on 04-21-2025 Cholesterol in LDL [Mass/Vol] 83 mg/dL 0-130 [facility] Serum or plasma cholesterol measurement (mass/volume)Ordered By: HEALTH ASSESSMENT on 04-21-2025 Cholesterol [Mass/Vol] 152 mg/dL <201 [facility] Comment on above: Cholesterol level, D esirable <200 mg/dLBorderline high cholesterol 200-239 mg/dLHigh cholesterol >=240 mg/dLRecommendations of the NCEP Adult Treatment Panel for the following risk-cutoff thresholds for the [place] population. Serum or plasma urea nitroge n measurement (mass/volume)Ordered By: HEALTH ASSESSMENT on 04-21-2025 Urea nitrogen [Mass/Vol] 18 mg/dL 4-19 [facility] Serum or plasma uric acid me asurement (mass/volume)Ordered By: [facility] ASSESSMENT on 04-21-2025 Urate [Mass/Vol] 3.6 mg/dL 2.6-6.0 [facility] Comment on above: The drugs N-Acetylcy steine and Metamizole may falsely depress this assay. Sodium levelOrdered By: [facility] ASSESSMENT on 04-21-2025 Sodium [Moles/Vol] 139 mmol/L 133-145 [facility] Total proteinOrdered By: [facility] ASSESSMENT on 04-21-2025 Protein [Mass/Vol] 6.7 g/dL 5.9-8.4 [facility] Triglycerides measurementOrd ered By: HEALTH ASSESSMENT on 04-21-2025 Triglyceride [Mass/Vol] 65 mg/dL <199 [facility] Comment on above: The drugs N-Acetylcy steine and Metamizole may falsely depress this assay. Normal range: <150 mg/dLBorderline High: 150-199 mg/dLHigh: 200-499 mg/dLVery High: >500 mg/dL Urinalysis, Employeeon 04-21 BILIRUBIN URINE Negative Normal Negative [facility] Comment on above: Order Comment: Urine , Random Performed By: #### L 100.0200, L500.2900, L400.0100 #### [facility] [address] [place], [address] Clarity (U) Clear Normal Clear [facility] Comment on above: Order Comment: Urine , Random Performed By: #### L 100.0200, L500.2900, L400.0100 #### [facility] [address] [place], [address] Color (U) Yellow Normal Yellow [facility] Comment on above: Order Comment: Urine , Random Performed By: #### L 100.0200, L500.2900, L400.0100 #### [facility] [address] [place], [address] GLUCOSE, UR Normal Normal Normal [facility] Comment on above: Order Comment: Urine , Random Performed By: #### L 100.0200, L500.2900, L400.0100 #### [facility] [address] [place], [address] KETONE UR Negative Normal Negative [facility] Comment on above: Order Comment: Urine , Random Performed By: #### L 100.0200, L500.2900, L400.0100 #### [facility] [address] [place], [address] LEUK ESTERASE Negative Normal Negative [facility] Comment on above: Order Comment: Urine , Random Performed By: #### L 100.0200, L500.2900, L400.0100 #### [facility] [address] [place], [address] Nitrite Ql (U) Negative Normal Negative [facility] Comment on above: Order Comment: Urine , Random Performed By: #### L 100.0200, L500.2900, L400.0100 #### [facility] [address] [place], [address] OCCULT BLOOD-UR Negative Normal Negative [facility] Comment on above: Order Comment: Urine , Random Performed By: #### L 100.0200, L500.2900, L400.0100 #### [facility] [address] [place], [address] pH UR 7.0 Normal 5.0 - 8.0 [facility] Comment on above: Order Comment: Urine , Random Performed By: #### L 100.0200, L500.2900, L400.0100 #### [facility] [address] [place], [address] PROT DIPSTX Negative Normal Negative [facility] Comment on above: Order Comment: Urine , Random Performed By: #### L 100.0200, L500.2900, L400.0100 #### [facility] [address] [place], [address] SP.GR. DIPSTX 1.010 Normal 1.002-1.030 [facility] Comment on above: Order Comment: Urine , Random Performed By: #### L 100.0200, L500.2900, L400.0100 #### [facility] [address] [place], [address] UROBILI Normal Normal Normal [facility] Comment on above: Order Comment: Urine , Random Performed By: #### L 100.0200, L500.2900, L400.0100 #### [facility] [address] [place], [address] Urine clarityOrdered By: A [facility] ASSESSMENT on 04-21-2025 Clarity (U) Clear Clear [facility] Urine color determinationOrd ered By: HEALTH ASSESSMENT on 04-21-2025 Color (U) Yellow Yellow [facility] Urine glucose detectionOrder ed By: HEALTH ASSESSMENT on 04-21-2025 Glucose Ql (U) Normal mg/dl Normal [facility] Urine leukocyte esterase det ection by dipstickOrdered By: HEALTH ASSESSMENT on 04-21-2025 Leukocyte esterase Test strip Ql (U) Negative Negative [facility] Urine pHOrdered By: HEALTH A SSESSMENT on 04-21-2025 pH (U) 7.0 [pH] 5.0 - 8.0 [facility] Urine specific gravity measu rementOrdered By: HEALTH ASSESSMENT on 04-21-2025 Specific gravity (U) [Rel density] 1.010 1.002-1.030 [facility] Urine urobilinogen measureme ntOrdered By: HEALTH ASSESSMENT on 04-21-2025 Urobilinogen Ql (U) Normal mg/dl Normal [facility] White blood cell (WBC) count Ordered By: HEALTH ASSESSMENT on 04-21-2025 WBC (Bld) [#/Vol] 6.5 10*3/uL 4.4-11.0 [facility] COVID 19 AG RAPID (DOUGLAS Chatman)on 08-19-2024 SARS-CoV-2 (COVID-19) RNA RAMÓN+probe Ql (Unsp spec) *Negative results from patients with symptom onset beyond five days should be treated as presumptive and confirmed by a molecular assay if clinically necessary. Negative results should not be used as the sole basis for treatment or for patient management. SARS-CoV-2 Ag Resp Ql IA.rapid *Positive results do not differentiate between SARS-CoV and SARS-CoV-2. If differentiation of the specific SARS virus is desired an additional sample and an additional order is required. SARS-CoV-2 Ag Resp Ql IA.rapid * This test has not been FDA cleared or approved; the test has been authorized by FDA under an Emergency Use Authorization (EAU) for use by laboratories certified under CLIA that meet the requirements to perform moderate, high, or waived complexity tests. SARS-CoV-2 Ag Resp Ql IA.rapid Normal Reference Range: Negative SARS-CoV-2 (COVID 19) Negative RAPID METHOD [employer] COVID19 Ag Card Normal [facility] Comment on above: Performed By: #### M 100.505 #### [facility] [place], [place], [id number] COVID-19 virus antigen assay Ordered By: Pancho Cota on 09-30-2023 SARS-CoV-2 (COVID-19) Ag IA.rapid Ql (Resp) [facility] Cervical or vagninal specime n microscopic examination by cytology stain (reported asOrdered By: Kary Garcia on 07-15-2023 Cytology report Cyto stain Doc (Cvx/Vag) Comment . [facility] Comment on above: The Pap smear is a s creening test designed to aid in thedetection of premalignant and malignant conditions of theuterine cervix. It is not a diagnostic procedure andshould not be used as the sole means of detecting cervicalcancer. Both false-positive and false-negative reports dooccur. Detection in cervical specim en of any of human papilloma virus (HPV) 16, 18, 31, 33,Ordered By: Kary Garcia on 07-15-2023 HPV 16+18+31+33+35+39+45+51+ 52+56+58+59+66+68 DNA Probe+sig amp Ql (Cvx) Negative Negative [facility] Comment on above: This nucleic acid am plification test detects fourteen high-risk HPV types (16,18,31,33,35,39,45,51,52,56,58,59,66,68)without differentiation. Laboratory - CytologyOrdered By: Kary Garcia on 07-15-2023 Wire Straightener Cyto stain Nom (Cvx/Vag) [ID] Comment . [facility] Comment on above: Jim Han otechnologist (ASCP) Pathologist Cyto stain Nom (Cvx/Vag) [ID] Comment . [facility] Comment on above: Keerthi Baker MD, P athologist Laboratory - Miscellaneous t estsOrdered By: Kary Garcia on 07-15-2023 Service comment (Unsp spec) [Interp] Comment . [facility] Comment on above: This liquid based Th inPrep(R) pap test was screened withthe use of an image guided system. Service comment (Unsp spec) [Interp] . . [facility] Liquid-based cerv Pap + CT/G C by RAMÓN w reflex to high-risk HPV for ASCUSOrdered By: Kary Garcia on 07-15-2023 Cytology report Cyto stain.thin prep Doc (Cvx/Vag) Comment . [facility] Comment on above: Criteria not met, HP V Genotype not performed.Performed at: - [facility] [id number] Director: Bozena Francois MD, Phone: [phone] at: =G - [facility] [address] [id number] Director: Bozena Francois MD, Phone: [phone] No Panel InformationOrdered By: Kary Garcia on 07-15-2023 Pathology report final diagnosis Narrative Comment . [facility] Comment on above: EPITHELIAL CELL ABNO RMALITY.ATYPICAL SQUAMOUS CELLS OF UNDETERMINED SIGNIFICANCE (ASC-US). R87.610 SARS-CoV-2 (COVID-19) Ag IA. rapid Ql (Resp)Ordered By: Pancho Cota on 06-19-2023 SARS-CoV-2 Antigen (Rapid) SARS-CoV-2 (COVID 19) [facility] SARS-CoV-2 Antigen (Rapid) SARS-CoV-2 (COVID 19) [facility] CNPNon 03-23-2023 CNPN Telephone (INTMST) JAMAL ZARATE ([id number]) 1975 F Date Time Provider Department 03/23/23 NO PCP INTMST During your visit today, we recorded the following information about you: Reggie Kenyon 03/23/2023 6:52 PM Signed Pt was asking if you'd be able to take her as a new patient. Amelia Schuster MA 03/24/2023 10:46 AM Signed Sent to for review CHARITY Huntley, DEWAYNE.[facility] 03/24/2023 11:05 AM Signed 's practice is closed. Please assist pt.in scheduling with a provider that has an open practice. Estefania Eaton APRN.GAUDENCIO Miner 03/24/2023 11:46 AM Signed Patient informed and stated she will stick with her pcp she has now. She was just curious if was taking new patients. Allergies As of Date: 03/23/2023 (No Known Allergies) Date Reviewed: 11/01/2015 Reviewed by: Blank Sabillon RN - Fully Assessed Reason for Visit: Question [1327] Prescriptions as of 03/24/2023 - multivitamin (DAILY MULTIPLE) tablet Take 1 tablet by mouth once daily. Problem List As Of Date: 03/23/2023 (None) Encounter Status:Closed by REGGIE KENYON on 03/24/23 Normal [facility] Absolute lymphocyte countOrd ered By: HEALTH ASSESSMENT on 03-20-2023 Lymphocytes Auto (Unsp spec) [#/Vol] 1.72 10*3/uL 0.83-4.51 [facility] Absolute reticulocyte countO rdered By: HEALTH ASSESSMENT on 03-20-2023 Reticulocytes (Bld) [#/Vol] 0.00 10*3/uL 0-5 [facility] Basophil percentageOrdered B y: HEALTH ASSESSMENT on 03-20-2023 Basophil percentage 3.8 mg/dL 2.5-4.9 [facility] Bilirubin [Mass/Vol] 0.60 mg/dL 0.20-1.00 [facility] Comment on above: For patients on eltr ombopag therapy, use of Dimension [place] TBIL is not recommended. Chloride [Moles/Vol] 105 mmol/L 98-107 [facility] Cholesterol [Mass/Vol] 176 mg/dL <200 [facility] Comment on above: <200 mg/dL Desirable 200-240 mg/dL Borderline >240 mg/dL High Risk Glucose [Mass/Vol] 79 mg/dL 74-106 [facility] LDH [Catalytic activity/Vol] 157 U/L 84-246 [facility] Neutrophils (Bld) [#/Vol] 3.1 10*3/uL 2.0-7.7 [facility] Potassium [Moles/Vol] 3.6 mmol/L 3.5-5.1 [facility] Protein [Mass/Vol] 6.9 g/dL 6.4-8.2 [facility] Sodium [Moles/Vol] 139 mmol/L 136-145 [facility] Triglyceride [Mass/Vol] 58 mg/dL <199 [facility] Comment on above: The drugs N-Acetylcy steine and Metamizole may falsely depress this assay.Serum Triglycerides Reference Interval Normal <150 mg/dL Borderline high 150 - 199 mg/dL High 200 - 499 mg/dL Very High > or = 500 mg/dL WBC (Bld) [#/Vol] 6.0 10*3/uL 4.4-11.0 [facility] Bilirubin Test strip Ql (U)O rdered By: HEALTH ASSESSMENT on 03-20-2023 Bilirubin Ql (U) Negative Negative [facility] Blood erythrocytes count (nu mber/volume)Ordered By: HEALTH ASSESSMENT on 03-20-2023 RBC (Bld) [#/Vol] 4.36 10*6/uL 4.2-5.4 [facility] Blood hemoglobin measurement (mass/volume)Ordered By: HEALTH ASSESSMENT on 03-20-2023 Hemoglobin (Bld) [Mass/Vol] 12.8 g/dL 12.0-15.0 [facility] Blood platelet mean volumeOr dered By: HEALTH ASSESSMENT on 03-20-2023 Platelet mean volume (Bld) [Entitic vol] 9.0 fL 6.2-12.0 [facility] Determination of erythrocyte mean corpuscular volume (MCV)Ordered By: HEALTH ASSESSMENT on 03-20-2023 MCV (RBC) [Entitic vol] 90.1 fL 81-99 [facility] Direct bilirubinOrdered By: HEALTH ASSESSMENT on 03-20-2023 Bilirubin.direct [Mass/Vol] 0.13 mg/dL 0.00-0.30 [facility] Hematocrit Auto (Bld) [Volum e fraction]Ordered By: HEALTH ASSESSMENT on 03-20-2023 Hematocrit (Bld) [Volume fraction] 39.3 % 37-47 [facility] Ketones Test strip Ql (U)Ord ered By: HEALTH ASSESSMENT on 03-20-2023 Ketones Ql (U) Negative Negative [facility] Laboratory - Chemistry and C hemistry - challengeOrdered By: HEALTH ASSESSMENT on 03-20-2023 ALP [Catalytic activity/Vol] 51 U/L 45-117 [facility] ALT [Catalytic activity/Vol] 18 U/L 13-56 [facility] Cholesterol.total/Choles terol in HDL [Mass ratio] 3.10 {ratio} [facility] CO2 [Moles/Vol] 25.0 mmol/L 21.0-32.0 [facility] Globulin (S) [Mass/Vol] 3.3 g/dL 2.2-4.2 [facility] Urea nitrogen/Creatinine [Mass ratio] 28.5 mg/mg 10-20 [facility] - Hematology and Cell countsOrdered By: HEALTH ASSESSMENT on 03-20-2023 Erythrocyte distribution width (RBC) [Entitic vol] 42.1 fL 35.1-43.9 [facility] Erythrocyte distribution width (RBC) [Ratio] 12.7 % 11.6-14.6 [facility] MCH (RBC) [Entitic mass] 29.4 pg 27.0-32.0 [facility] Nucleated RBC/100 WBC (Bld) [Ratio] 0 % 0-5 [facility] MCHC Auto (RBC) [Mass/Vol]Or dered By: HEALTH ASSESSMENT on 03-20-2023 MCHC (RBC) [Mass/Vol] 32.6 g/dL 32-36 [facility] Nitrite Test strip Ql (U)Ord ered By: HEALTH ASSESSMENT on 03-20-2023 Nitrite Ql (U) Negative Negative [facility] No Panel InformationOrdered By: HEALTH ASSESSMENT on 03-20-2023 Estimated GFR (MDRD) Amer 104 mL/min >60 [facility] Comment on above: GFR Calc Estimated GFR (MDRD) Non-Af Amer 86 mL/min >60 [facility] Comment on above: Non- GFR Calc Platelets bldOrdered By: ANU LT ASSESSMENT on 03-20-2023 Platelets (Bld) [#/Vol] 250 10*3/uL 150-450 [facility] Protein Test strip Ql (U)Ord ered By: HEALTH ASSESSMENT on 03-20-2023 Protein Ql (U) Negative Negative [facility] Segmented neutrophils/100 WB C Auto (Bld)Ordered By: HEALTH ASSESSMENT on 03-20-2023 Segmented neutrophils/100 WBC (Bld) 51.2 % 47-70 [facility] Serum or plasma albumin reyna urement (mass/volume)Ordered By: HEALTH ASSESSMENT on 03-20-2023 Albumin [Mass/Vol] 3.6 g/dL 3.2-5.0 [facility] Serum or plasma albumin/glob ulin mass ratioOrdered By: HEALTH ASSESSMENT on 03-20-2023 Albumin/Globulin [Mass ratio] 1.1 {ratio} 0.9-2.4 [facility] Serum or plasma calcium reyna urement (mass/volume)Ordered By: HEALTH ASSESSMENT on 03-20-2023 Calcium [Mass/Vol] 8.5 mg/dL 8.5-10.1 [facility] Serum or plasma cholesterol in HDL measurement (mass/volume)Ordered By: HEALTH ASSESSMENT on 03-20-2023 Cholesterol in HDL [Mass/Vol] 57 mg/dL >40 [facility] Comment on above: The drugs N-Acetylcy steine and Metamizole may falsely depress this assay. Reference Range HDL <40 mg/dL Low HDL Cholesterol HDL >or= 60 mg/dL High HDL Cholesterol Serum or plasma cholesterol in VLDL measurement (mass/volume)Ordered By: HEALTH ASSESSMENT on 03-20-2023 Cholesterol in VLDL [Mass/Vol] 12 mg/dL 5-40 [facility] Serum or plasma creatinine m easurement (mass/volume)Ordered By: HEALTH ASSESSMENT on 03-20-2023 Creatinine [Mass/Vol] 0.77 mg/dL 0.55-1.02 [facility] Comment on above: The validity of the calculated GFR & GFRAA in patients over 70 years has not been determined. Clinical correlation is essential. Serum or plasma low density lipoprotein (LDL) cholesterol measurement (mass/volume)Ordered By: HEALTH ASSESSMENT on 03-20-2023 Cholesterol in LDL [Mass/Vol] 107 mg/dL 0-130 [facility] Serum or plasma urea nitroge n measurement (mass/volume)Ordered By: HEALTH ASSESSMENT on 03-20-2023 Urea nitrogen [Mass/Vol] 22 mg/dL 7-18 [facility] Serum or plasma uric acid me asurement (mass/volume)Ordered By: HEALTH ASSESSMENT on 03-20-2023 Urate [Mass/Vol] 3.4 mg/dL 2.6-6.0 [facility] Comment on above: The drugs N-Acetylcy steine and Metamizole may falsely depress this assay. Thin prep Papanicolaou smear with manual screeningOrdered By: HEALTH ASSESSMENT on 03-20-2023 Thin prep Papanicolaou smear with manual screening 15 U/L 15-37 [facility] Thin prep Papanicolaou smear with manual screening 9 5-15 [facility] Urine blood detectionOrdered By: HEALTH ASSESSMENT on 03-20-2023 RBC Ql (U) Negative Negative [facility] Urine clarityOrdered By: A LT ASSESSMENT on 03-20-2023 Clarity (U) Clear Clear [facility] Urine color determinationOrd ered By: HEALTH ASSESSMENT on 03-20-2023 Color (U) Yellow Yellow [facility] Urine glucose detectionOrder ed By: HEALTH ASSESSMENT on 03-20-2023 Glucose Ql (U) Normal mg/dl Normal [facility] Urine leukocyte esterase det ection by dipstickOrdered By: HEALTH ASSESSMENT on 03-20-2023 Leukocyte esterase Test strip Ql (U) Negative Negative [facility] Urine pHOrdered By: HEALTH A SSESSMENT on 03-20-2023 pH (U) 7.0 [pH] 5.0 - 8.0 [facility] Urine specific gravity measu rementOrdered By: HEALTH ASSESSMENT on 03-20-2023 Specific gravity (U) [Rel density] 1.010 1.002-1.030 [facility] Urobilinogen Auto test strip Ql (U)Ordered By: HEALTH ASSESSMENT on 03-20-2023 Urobilinogen Ql (U) Normal mg/dl Normal [facility] COVID-19 virus antigen assay Ordered By: Dr. Cota on 12-30-2022 SARS-CoV-2 (COVID-19) Ag IA.rapid Ql (Resp) [facility] Influenza virus A and B and SARS-CoV-2 (COVID-19) Ag panel - Upper respiratory specimOrdered By: Dr. Cota on 10-15-2022 SARS-CoV-2 (COVID-19) RNA RAMÓN+probe Ql (Resp) [facility] Absolute lymphocyte counton 05-19-2022 Lymphocytes Auto (Unsp spec) [#/Vol] 1.76 10*3/uL 0.83-4.51 [facility] Work Phone: Absolute reticulocyte counto n 05-19-2022 Reticulocytes (Bld) [#/Vol] 0.00 10*3/uL 0-5 [facility] Work Phone: Basophil percentageon 2021 Basophil percentage 3.7 mg/dL 2.5-4.9 [facility] Work Phone: Bilirubin [Mass/Vol] 0.40 mg/dL 0.20-1.00 [facility] Work Phone: [phone] Comment on above: For patients on eltr ombopag therapy, use of Dimension [place] TBIL is not recommended. Chloride [Moles/Vol] 105 mmol/L 98-107 [facility] Work Phone: Cholesterol [Mass/Vol] 144 mg/dL <200 [facility] Work Phone: Comment on above: <200 mg/dL Desirable 200-240 mg/dL Borderline >240 mg/dL High Risk Glucose [Mass/Vol] 83 mg/dL 74-106 [facility] Work Phone: Neutrophils (Bld) [#/Vol] 3.0 10*3/uL 2.0-7.7 [facility] Work Phone: Potassium [Moles/Vol] 3.7 mmol/L 3.5-5.1 [facility] Work Phone: Protein [Mass/Vol] 6.8 g/dL 6.4-8.2 [facility] Work Phone: Sodium [Moles/Vol] 138 mmol/L 136-145 [facility] Work Phone: Triglyceride [Mass/Vol] 49 mg/dL <199 [facility] Work Phone: Comment on above: The drugs N-Acetylcy steine and Metamizole may falsely depress this assay.Serum Triglycerides Reference Interval Normal <150 mg/dL Borderline high 150 - 199 mg/dL High 200 - 499 mg/dL Very High > or = 500 mg/dL WBC (Bld) [#/Vol] 5.8 10*3/uL 4.4-11.0 [facility] Work Phone: Blood erythrocytes count (nu mber/volume)on 05-19-2022 RBC (Bld) [#/Vol] 4.23 10*6/uL 4.2-5.4 [facility] Work [facility]: Blood hemoglobin measurement (mass/volume)on 05-19-2022 Hemoglobin (Bld) [Mass/Vol] 13.0 g/dL 12.0-15.0 [facility] Work Phone: Blood platelet mean volumeon 05-19-2022 Platelet mean volume (Bld) [Entitic vol] 9.2 fL 6.2-12.0 [facility] Work Phone: Determination of erythrocyte mean corpuscular volume (MCV)on 05-19-2022 MCV (RBC) [Entitic vol] 93.9 fL 81-99 [facility] Work Phone: Direct bilirubinon 2 Bilirubin.direct [Mass/Vol] 0.11 mg/dL 0.00-0.30 [facility] Work Phone: Hematocrit Auto (Bld) [Volum e fraction]on 05-19-2022 Hematocrit (Bld) [Volume fraction] 39.7 % 37-47 [facility] Work Phone: Laboratory - Chemistry and C hemistry - challengeon 05-19-2022 ALP [Catalytic activity/Vol] 52 U/L 45-117 [facility] Work Phone: ALT [Catalytic activity/Vol] 19 U/L 13-56 [facility] Work Phone: Cholesterol.total/Choles terol in HDL [Mass ratio] 2.30 {ratio} [facility] Work Phone: CO2 [Moles/Vol] 29.0 mmol/L 21.0-32.0 [facility] Work Phone: Globulin (S) [Mass/Vol] 3.2 g/dL 2.2-4.2 [facility] Work Phone: Urea nitrogen/Creatinine [Mass ratio] 24.0 mg/mg 10-20 [facility] Work Phone: Laboratory - Hematology and Cell countson 05-19-2022 Erythrocyte distribution width (RBC) [Entitic vol] 41.0 fL 35.1-43.9 [facility] Work Phone: Erythrocyte distribution width (RBC) [Ratio] 11.9 % 11.6-14.6 [facility] Work Phone: MCH (RBC) [Entitic mass] 30.7 pg 27.0-32.0 [facility] Work Phone: Nucleated RBC/100 WBC (Bld) [Ratio] 0 % 0-5 [facility] Work Phone: MCHC Auto (RBC) [Mass/Vol]on 05-19-2022 MCHC (RBC) [Mass/Vol] 32.7 g/dL 32-36 [facility] Work Phone: No Panel Informationon 05-19 Estimated GFR (MDRD) Amer 95 mL/min >60 [facility] Work Phone: Comment on above: GFR Calc Estimated GFR (MDRD) Non-Af Amer 79 mL/min >60 [facility] Work Phone: Comment on above: Non- GFR Calc Platelets bldon 05-19-2022 Platelets (Bld) [#/Vol] 267 10*3/uL 150-450 [facility] Work Phone: Segmented neutrophils/100 WB C Auto (Bld)on 05-19-2022 Segmented neutrophils/100 WBC (Bld) 50.9 % 47-70 [facility] Work Phone: Serum or plasma albumin reyna urement (mass/volume)on 05-19-2022 Albumin [Mass/Vol] 3.6 g/dL 3.2-5.0 [facility] Work Phone: Serum or plasma albumin/glob ulin mass ratioon 05-19-2022 Albumin/Globulin [Mass ratio] 1.1 {ratio} 0.9-2.4 [facility] Work Phone: Serum or plasma calcium reyna urement (mass/volume)on 05-19-2022 Calcium [Mass/Vol] 8.4 mg/dL 8.5-10.1 [facility] Work Phone: Serum or plasma cholesterol in HDL measurement (mass/volume)on 05-19-2022 Cholesterol in HDL [Mass/Vol] 62 mg/dL >40 [facility] Work Phone: Comment on above: The drugs N-Acetylcy steine and Metamizole may falsely depress this assay. Reference Range HDL <40 mg/dL Low HDL Cholesterol HDL >or= 60 mg/dL High HDL Cholesterol Serum or plasma cholesterol in VLDL measurement (mass/volume)on 05-19-2022 Cholesterol in VLDL [Mass/Vol] 10 mg/dL 5-40 [facility] Work Phone: Serum or plasma creatinine m easurement (mass/volume)on 05-19-2022 Creatinine [Mass/Vol] 0.83 mg/dL 0.55-1.02 [facility] Work Phone: Comment on above: The validity of the calculated GFR & GFRAA in patients over 70 years has not been determined. Clinical correlation is essential. Serum or plasma low density lipoprotein (LDL) cholesterol measurement (mass/volume)on 05-19-2022 Cholesterol in LDL [Mass/Vol] 72 mg/dL 0-130 [facility] Work Phone: Serum or plasma urea nitroge n measurement (mass/volume)on 05-19-2022 Urea nitrogen [Mass/Vol] 20 mg/dL 7-18 [facility] Work Phone: Serum or plasma uric acid me asurement (mass/volume)on 05-19-2022 Urate [Mass/Vol] 3.4 mg/dL 2.6-6.0 [facility] Work Phone: Comment on above: The drugs N-Acetylcy steine and Metamizole may falsely depress this assay. Thin prep Papanicolaou smear with manual screeningon 05-19-2022 Thin prep Papanicolaou smear with manual screening 17 U/L 15-37 [facility] Work Phone: Thin prep Papanicolaou smear with manual screening 4 5-15 [facility] Work Phone: Thin prep Papanicolaou smear with manual screening 170 U/L 84-246 [facility] Work Phone: No Panel Informationon 10-08 SARS-CoV-2 Antigen (Rapid) SARS-CoV-2 (COVID 19) [facility] Work Phone: Vital Signs Date Time Vital Sign Value Performing Clinician Facility 07-15-2023 14:15-0400 Body height 167.[address] Kary Maciel Work Phone: [facility] 07-15-2023 14:15-0400 Body mass index (BMI) [Ratio] 25 kg/m2 Dr. Kary Maciel Work Phone: [facility] 07-15-2023 14:15-0400 Body weight 70.[address] Kary Maciel Work Phone: [facility] 07-15-2023 14:15-0400 Diastolic blood pressure 72 mm[Hg] Dr. Kary Maciel Work Phone: [facility] 07-15-2023 14:15-0400 Systolic blood pressure 110 mm[Hg] Dr. Kary Maciel Work Phone: [facility] 06-25-2023 11:45-0400 Body height 168 cm Alexsander Andrews MD [facility] 06-25-2023 11:45-0400 Body mass index (BMI) [Ratio] 25.8 kg/m2 Alexsander Andrews MD [facility] 06-25-2023 11:45-0400 Body temperature 97.52 [degF] Alexsander Andrews MD [facility] 06-25-2023 11:45-0400 Body weight 72.6 kg Alexsander Andrews MD [facility] 06-25-2023 11:45-0400 Diastolic blood pressure 86 mm[Hg] Alexsander Andrews MD [facility] 06-25-2023 11:45-0400 Heart rate 92 /min Alexsander Andrews MD [facility] 06-25-2023 11:45-0400 Respiratory rate 20 /min Alexsander Andrews MD [facility] 06-25-2023 11:45-0400 SaO2% (BldA) [Mass fraction] 98 % Alexsander Andrews MD [facility] 06-25-2023 11:45-0400 Systolic blood pressure 127 mm[Hg] Alexsander Andrews MD [facility] 06-05-2022 00:18-0400 Body mass index (BMI) [Ratio] 24.4 kg/m2 [facility] Work Phone: 05-05-2022 00:14-0400 Body mass index (BMI) [Ratio] 24.4 kg/m2 [facility] Work Phone: 04-04-2022 00:16-0400 Body mass index (BMI) [Ratio] 24.4 kg/m2 [facility] Work Phone: 03-05-2022 00:20-0400 Body mass index (BMI) [Ratio] 24.4 kg/m2 [facility] Work Phone: 02-02-2022 00:06-0400 Body mass index (BMI) [Ratio] 24.4 kg/m2 [facility] Work Phone: 11-05-2021 00:28-0500 Body mass index (BMI) [Ratio] 24.4 kg/m2 [facility] Work Phone: 11-04-2021 23:28-0500 Body mass index (BMI) [Ratio] 24.4 kg/m2 [facility] Work Phone: 10-04-2021 23:23-0500 Body mass index (BMI) [Ratio] 24.4 kg/m2 [facility] Work Phone: Encounters Encounter Date Encounter Type Care Provider Facility Start: 08-14-2025 Encounter for gynecological examination (general) (routine) without abnormal findings Karyrenetta Carolina Jose [facility] Start: 08-14-2025 End: 08-14-2025 ambulatory DA TRUMP Facility:[facility] Start: 06-15-2025 ambulatory Pancho Cota OLS Facili ty:[facility] Start: 05-25-2025 End: 06-04-2025 Discharged Recurring Pancho Cota MD [facility] Start: 05-25-2025 End: 06-04-2025 ambulatory RJ CRISTINA Work Phone: [facility] Start: 04-21-2025 Registered Referred [facility] RIS K ASSESSMENT -[facility] Start: 04-21-2025 ambulatory DA TRUMP Facility: [facility] Start: 09-14-2024 ambulatory Pancho Chi Cipriano Facility:[facility] Start: 08-19-2024 End: 09-03-2024 ambulatory DA TRUMP Facility:[facility] Start: 09-30-2023 End: 10-04-[address] Kary Maciel Work Phone: [facility] Work Phone: Start: 09-30-2023 End: 10-04-[address] Kary Maciel Work Phone: [facility] Start: 09-07-2023 End: 09-07-[address] Kary Maciel Work Phone: [facility] Work Phone: Start: 09-07-2023 End: 09-07-[address] Kary Maciel Work Phone: [facility] Work Phone: Start: 07-15-2023 End: 07-15-[address] Kary Maciel Work Phone: [facility] Work Phone: Start: 07-15-2023 End: 07-15-[address] Kary Maciel Work Phone: [facility]-Laboratory, Specimen Work Phone: Start: 07-15-2023 End: 07-15-[address] Kary Maciel Work Phone: [facility] [place] [facility] Work Phone: Start: 06-25-2023 Alexsander Andrews MD [facility] Start: 06-19-2023 End: 07-04-2023 ambulatory [facility] Work Phone: Start: 06-19-2023 End: 07-04-2023 [facility] Start: 04-30-2023 End: 04-30-2023 ambulatory [facility] Work Phone: Start: 04-30-2023 End: 04-30-2023 Patient encounter procedure [facility] Work Phone: Start: 03-23-2023 Telephone encounter No Pcp Int [facility] Meg Gonsales Comment on above: Question Start: 03-20-2023 Registered Referred [facility] Start: 12-30-2022 End: 01-02-2023 ambulatory [facility] Work Phone: Start: 12-30-2022 End: 01-02-2023 Discharged Recurring [facility] Start: 10-15-2022 End: 11-04-2022 ambulatory [facility] Work Phone: Start: 10-15-2022 End: 11-04-2022 Discharged Recurring [facility] Start: 07-03-2022 End: 07-04-2022 ambulatory [facility] Work Phone: Start: 07-03-2022 End: 07-04-2022 Discharged Recurring [facility] Start: 05-29-2022 End: 06-04-2022 Discharged Recurring [facility] Start: 05-19-2022 Registered Referred [facility] Start: 04-21-2022 End: 05-04-2022 Discharged Recurring [facility] Start: 04-08-2022 Registered Referred [facility] Start: 04-03-2022 End: 04-03-2022 Discharged Recurring [facility] Start: 04-03-2022 Registered Recurring [facility] Start: 03-06-2022 End: 04-03-2022 Discharged Recurring [facility] Start: 02-27-2022 Registered Referred [facility] Start: 02-24-2022 End: 03-04-2022 Discharged Recurring [facility] Start: 01-30-2022 End: 02-01-2022 Discharged Recurring [facility] Start: 01-28-2022 End: 02-01-2022 Discharged Recurring [facility] Start: 10-10-2021 End: 11-04-2021 Discharged Recurring [facility] Procedures Date Procedure Procedure Detail Performing Clinician Start: 05-25-2025 Viral antigen assay CHR YONI CRISTINA Work Phone: Start: 04-21-2025 Serum inorganic phos phate measurement RJ CRISTINA Work Phone: Start: 04-21-2025 Urnls dip stick/tabl et reagent auto microscopy RJ CRISTINA Work Phone: Start: 09-30-[address] Kary Maciel Work Phone: Start: 09-07-[address] Kary Maciel Work Phone: Start: 06-19-2023 Viral antigen assay Start: 04-30-2023 Screening mammography Start: 02-27-2022 End: 02-27-2022 Viral antigen assay Start: 01-30-2022 End: 01-30-2022 Viral antigen assay Start: 10-08-2021 SARS-CoV-2 Antigen (Rapid) Start: 12-05-2014 Mammography No Pcp SARS-CoV-2 & FLU Ant igen (Rapid) Viral antigen assay Viral antigen assay Plan of Treatment Date Care Activity Detail Author Start: 07-15-2023 Liquid based cervical cytology screening [facility] Start: 06-05-2023 [facility] Start: 10-05-2022 DEPRESSION ASSESSMENT DEPRESSION ASSESSMENT [facility] Start: 2022 COLOGUARD (FIT-DNA) COLOGUARD (FIT-DNA) [facility] Start: 2022 Colonoscopy COLONOSCOPY [facility] Start: 2022 COLORECTAL CANCER SCREENING COLORECTAL CANCER SCREENING [facility] Start: [address] COLONOGRAPHY [facility] Start: 2022 DIABETES SCREEN DIABETES SCREEN [facility] Start: 2022 FECAL OCCULT BLOOD FECAL OCCULT BLOOD [facility] Start: 2022 LIPID SCREEN LIPID SCREEN [facility] Start: 2022 SIGMOIDOSCOPY SIGMOIDOSCOPY [facility] Start: 11-28-2019 HPV TESTING HPV TESTING [facility] Start: 11-28-2019 PAP TESTING PAP TESTING [facility] Start: 2017 Mammography MAMMOGRAM [facility] Start: 1996 Urine microalbumin profile DTAP,TDAP,TD (1 - Tdap) [facility] Start: 1995 HEPATITIS C SCREENING HEPATITIS C SCREENING [facility] Start: 1995 HIV SCREENING HIV SCREENING [facility] Start: 1977 COVID-19 VACCINE (#1) COVID-19 VACCINE (#1) [facility] Start: 1977 HEPATITIS B (1 of 3 - 3-dose series) HEPATITIS B (1 of 3 - 3-dose series) [facility] Path report.final Dx Spec [facility] Thyroid stimulating hormone measurement [facility] Pelvis [facility] US Pelvis transvaginal [facility] Vitamin D, 25-hydrox y [facility] Immunizations Immunization Date Immunization Notes Care Provider Lita bain 08-18-2024 influenza, seasonal, injectable, preservative free RJ CRISTINA Work Phone: [facility] 08-20-2023 influenza, injectabl e, quadrivalent, preservative free Dr. Kary Maciel Work Phone: [facility] 08-20-2022 influenza, injectabl e, quadrivalent, preservative free [facility] 08-20-2022 influenza, seasonal, injectable [facility] 08-15-2021 influenza, injectabl e, quadrivalent, preservative free [facility] 08-15-2021 influenza, seasonal, injectable [facility] 08-09-2020 influenza, injectabl e, quadrivalent, preservative free [facility] 08-09-2020 influenza, seasonal, injectable [facility] 07-26-2019 influenza, injectabl e, quadrivalent, preservative free [facility] 07-26-2019 influenza, seasonal, injectable [facility] 08-09-2018 influenza, injectabl e, quadrivalent, preservative free [facility] 08-09-2018 influenza, seasonal, injectable [facility] 07-29-2017 influenza, injectabl e, quadrivalent, preservative free [facility] 07-29-2017 influenza, seasonal, injectable [facility] 07-03-2016 influenza, injectabl e, quadrivalent, preservative free [facility] 07-03-2016 influenza, seasonal, injectable [facility] 07-04-2015 influenza, injectabl e, quadrivalent, preservative free [facility] 07-04-2015 influenza, seasonal, injectable [facility] Payers Date Payer Category Payer Unknown [id number] 2024 Self-pay [id number] 2015 Unknown MMO MMO S [id number] 2015-Present [phone] [address] [address] [place] [address] Indemnity [id number] Unknown [id number] Unknown [id number] Unknown [id number] Unknown [id number] Unknown [id number] Unknown [id number] Unknown [id number] Unknown [id number] Social History Date Type Detail Facility Start: 10-30-2020 End: 07-15-2023 Tobacco smoking status NHIS Unknown if ever smoked [facility] Start: 1975 Sex Assigned At Female W [facility] Start: 11-02-2014 End: 07-15-2023 Tobacco smoking status NHIS Never smoked tobacco [facility] Start: 11-02-2014 Tobacco use and exposure Smokeless tobacco non-user [facility] Start: 05-18-2022 Alcohol intake Current non-dr syrup mixer of alcohol (finding) [facility] Start: 1975 Sex Assigned At Not on file C [facility] Clinical Note 07-15-2023 Note Date & Type Note Facility 07-15-2023 Note [facility] Pap Smear Specimen Adequacy July 15, 2023 2:47pm Comment . Satisfactory for evaluation. Endocervical and/or squamous metaplasticcells (endocervical component) are present. Comment on above: Satisfactory for myla luation. Endocervical and/or squamous metaplasticcells (endocervical component) are present. Clinical Note 07-15-2023 Note Date & Type Note Facility 07-15-2023 Note [facility] Pap Smear Specimen Adequacy July 15, 2023 2:47pm Comment . Satisfactory for evaluation. Endocervical and/or squamous metaplasticcells (endocervical component) are present. Comment on above: Satisfactory for myla luation. Endocervical and/or squamous metaplasticcells (endocervical component) are present. Note 03-24-2023 Telephone Encounter - Shannon Miner - 03/24/2023 11:46 AM EDTTelephone Encounter - Estefania Eaton APRN.CNP - 03/24/2023 11:05 AM EDTTelephone Encounter - Amelia Schuster MA - 03/24/2023 10:45 AM EDT Note Date & Type Note Facility 03-24-2023 Miscellaneous Notes Formattin g of this note might be different from the original. Patient informed and stated she will stick with her pcp she has now. She was just curious if was taking new patients. 's practice is closed. Please assist pt.in scheduling with a provider that has an open practice. Estefania Eaton APRN.CNP Sent to for review Amelia Schuster MA Pt was asking if you'd be able to take her as a new patient. documented in this encounter [facility] Evaluation note Note Date & Type Note Facility Evaluation note No assessment information availa [facility] Work Phone: Evaluation note Note Date & Type Note Facility Evaluation note Diagnosis Onset Date Endocervical polyp acute Well woman exam acute [facility] Work Phone: Instructions Note Date & Type Note Facility Instructions No instruction information i s available. [facility] Reason for referral (narrative) Note Date & Type Note Facility Reason for referral (narrative) No reason for referral information available [facility] Work Phone: Chief Complaint and Reason for Visit Chief Complaint [facility] SNF-COVID 19 REQ UIRED TESTING [facility] SNF-COVID 19 REQUIRED TESTING Chief Complaint [facility] SNF-COVID 19 REQ UIRED TESTING [facility] SNF-COVID 19 REQUIRED TESTING [facility] SNF-COVID 19 REQUIRED TESTING Chief Complaint [facility] SNF-COVID 19 REQ UIRED TESTING [facility] SNF-COVID 19 REQUIRED TESTING [facility] SNF-COVID 19 REQUIRED TESTING [facility] SNF-COVID 19 REQUIRED TESTING Chief Complaint [facility] SNF-COVID 19 REQ UIRED TESTING EMPLOYEE HEALTH [facility] SNF-COVID 19 REQUIRED TESTING [facility] SNF-COVID 19 REQUIRED TESTING Chief Complaint EMPLOYEE LABS SCREENING Chief Complaint SCREENING r/s from 06/11 prov out Reason for Visit Endocervical polyp Well woman exam Chief Complaint r/s from 06/11 prov ou t ENDOCERVICAL POLYP Reason for Visit Endocervical polyp Well woman exam Chief Complaint Admit Date EMPLOYEE LABS April 21, 2025 7:33 am Summary Purpose Family History No Family History Records FoundNo Family History Records Found Advance Directives No Advanced Directives Records FoundNo Advanced Directives Records Found Additional Source Comments Goals (unrecognized section and content) Goals may be documented in a n alternate sectionGoals may be documented in an alternate sectionGoals may be documented in an alternate sectionGoals may be documented in an alternate sectionGoals may be documented in an alternate sectionGoals may be documented in an alternate sectionGoals may be documented in an alternate sectionGoals may be documented in an alternate sectionGoals may be documented in an alternate sectionGoals may be documented in an alternate sectionGoals may be documented in an alternate sectionGoals may be documented in an alternate sectionGoals may be documented in an alternate section Care Teams (unrecognized sec tion and content) Team Status: Active Member Role Status Dates Dr. Fadumo Meneses MD Family Provider Active Team Status: Inactive Member Role Status Dates Dr. Pancho Cota MD Attending Provider, Referring Pr ovider Active Team Status: Active Member Role Status Dates IBETH DE LA ROSA Primary Care Provider Active Health Risk Assessment Attending Provider, Referring P lakeisha Active Team Status: Inactive Member Role Status Dates IBETH DE LA ROSA Primary Care Provide r, Attending Provider, Referring Provider Active Team Status: Active Member Role Status Dates Dr. Fadumo Meneses MD Family Provider Active RJ CRISTINA Primary Care Provider Active Team Status: Inactive Member Role Status Dates IBETH DE LA ROSA Primary Care Provider Active Dr. Pancho Cota MD Attending Provider Active Team Status: Inactive Member Role Status Dates Dr. Kary Maciel DO Attending Provider Activ e Team Status: Inactive Member Role Status Dates Dr. Kary Maciel DO Attending Provider, Refe rring Provider Active Team Status: Inactive Member Role Status Dates Dr. Kary Maciel DO Attending Provider, Refe rring Provider Active IBETH DE LA ROSA Primary Care Provider Active Team Status: Active Member Role/Relationship Status Dates RJ CRISTINA Primary Care Provider Active Team Status: Active Member Role/Relationship Status Dates IBETH DE LA ROSA Primary Care Provider Active Start: April 21, 2025 Health Risk Assessment Attending Provider Active Start: April 21, 2025 Health Risk Assessment Referring Provider Active Start: April 21, 2025 Team Status: Inactive Member Role/Relationship Status Dates IBETH DE LA ROSA Primary Care Provider Active Start: May 25, 2025 End: June 04, 2025 Pancho MCINTOSH MD Attending Provider Active S tart: May 25, 2025 End: June 04, 2025 Pancho MCINTOSH MD Referring Provider Active S tart: May 25, 2025 End: June 04, 2025 Source Comments (unrecognize d section and content) In the event this informatio n is protected by the Federal Confidentiality of Alcohol and Drug Abuse Patient Records regulations: The Federal rules restrict any use of the information to criminally investigate or prosecute any alcohol or drug abuse patient.[facility] Reason for Visit (unrecogniz ed section and content) Reason Comments Question INFORMATION SOURCE (unrecogn ized section and content) DATE CREATED AUTHOR 03/25/2023 [facility] DATE CREATED AUTHOR AUTHOR'S ORGANIZ ATION 08/14/2025 [facility] FOR RECORDS PERTAINING TO PATIENTS WHO ARE OR HAVE BEEN ENROLLED IN A CHEMICAL DEPENDENCY/SUBSTANCEABUSE PROGRAM, SOME INFORMATION MAY BE OMITTED. This clinical summary was aggregated from multiple sources. Caution should be exercised in using it in the provision of clinical care. This summary normalizes information from multiple sources, and as a consequence, information in this document may materially change the coding, format and clinical context of patient data. In addition, data may be omitted in some cases. CLINICAL DECISIONS SHOULD BE BASED ON THE PRIMARY CLINICAL RECORDS. [employer] provides no warranty or guarantee of the accuracy or completeness of information in this document.
== END | disposition home or self-care (01) ==
PROVIDERS: Referring Provider Obstetrics & Gynecology; Visit Provider Obstetrics & Gynecology
DX: Z12.31 Encounter for screening mammogram for malignant neoplasm of breast (principal); Z80.3 Family history of malignant neoplasm of breast
CPT/HCPCS: 77063; 77067